=== PATIENT | female | born 1985 | race Caucasian/White ===

== ENCOUNTER → 2016-09-25 | Outpatient (CLI) | payer BC, OTHER | END | disposition home or self-care (01) | LOC: C.CPL 13:16 | PROVIDERS: ATTEND Obstetrics & Gynecology | DX: Q37.9 Unspecified cleft palate with unilateral cleft lip (principal) ==

== ENCOUNTER → 2016-10-30 | Outpatient (CLI) | payer BC, OTHER | END | disposition home or self-care (01) | LOC: C.CPL 13:38 | PROVIDERS: ATTEND Pediatrics Pediatric Cardiology | DX: Q24.9 Congenital malformation of heart, unspecified (principal) ==